=== PATIENT | male | born 1960 | race Caucasian/White ===

== ENCOUNTER 2016-12-23 17:44 | Emergency (ER) | payer SELFPAY ==
[~2016-12-23] VITALS: Ht 160 cm; Wt 72.0 kg
[2016-12-23 17:58] VITALS: Ht 160 cm; Wt 72.0 kg
[2016-12-23] MEDS ORDERED: MAGNESIUM SULFATE 2 GM, MULTIVITAMINS 10 ML, THIAMINE 100 MG, FOLIC ACID 1 MG in SOD CH... IV STA (18:00)
--- NOTE | 2016-12-23 19:02 | ERD ---
ER Documentation Chief Complaint Date/Time DATE: 12/23/16 TIME: 19:00 Chief Complaint shop lifting c/o hypergylcemia HPI This is a 56-year-old male with a history of diabetes that presents to the emergency department brought in by EMS after the patient was caught shoplifting a beer. The patient states he has been drinking alcohol throughout the day and has been noncompliant with his diabetic medication. The patient is reluctant to provide any further history but states he has no complaints at this time such as a headache chest pain palpitations nausea vomiting or abdominal pain. There is no signs of trauma or drug paraphernalia according to EMS ROS All systems reviewed and are negative except as per history of present illness. Medications Home Meds No Active Prescriptions or Reported Meds Allergies Allergies: Coded Allergies: No Known Allergy (Unverified , 12/23/16) Physical Exam Vitals Vital Signs Date Time Temp Pulse Resp B/P Pulse Ox O2 Delivery O2 Flow Rate FiO2 12/23/16 17:58 97.8 100 18 163/73 100 Physical Exam Constitutional:Well-developed. Well-nourished. HEENT:Normocephalic. Atraumatic.Pupils were equal round reactive to light. Moist mucous membranes.No tonsillar exudates. Neck: No nuchal rigidity. No lymphadenopathy. No posterior cervical spine tenderness or step-offs. Respiratory: Not using accessory muscles of respiration.Lungs were clear to auscultation bilaterally. No rhonchi. No rales. No wheezing. Cardiovascular: Regular rate regular rhythm.No murmurs. No rubs were appreciated.S1, S2 normal. Distal pulses are palpable 2+ bilaterally. GI: Abdomen was soft. Nontender. Non Distended. No pulsatile abdominal masses or bruits. No rebound. No guarding. Bowel sounds were present and normal. Muscle skeletal: Full range of motion of both the upper and lower extremities bilaterally.Normal muscle tone.No assymetrical calf tenderness or swelling. Skin: No petechia, no purpura. No lesions on the palms or the soles of the feet. No maculopapular rash. NEURO: Patient was alert, awake, orientated x3.No facial droop. Gait observed and normal with no ataxia.Speech was slurred. No focal neurological deficits. Patient smelled of alcohol. Results 24 hrs Current Medications Medications (Trade) Dose Ordered Sig/Naveen Route PRN Reason Start Time Stop Time Status Last Admin Dose Admin Magnesium Sulfate/ Multivitamins/ Thiamine HCl/ Folic Acid/Sodium Chloride (Magnesium Sulfate/Mvi Adult/ Vitamin B1/Folic Acid/NS) 1,015.2 ml @ 500 mls/ hr Q2H2M STAT IV 12/23/16 18:00 12/23/16 20:01 Procedures/MDM This patient presented to the emergency department with an Accu-Chek performed by EMS of 430. The patient appeared clinically intoxicated. After I evaluated the patient the nurse went into the room to administer IV fluids and place a peripheral IV however the patient had eloped without completion of treatment. 12 Lead EKG tracing ordered and reviewed by myself showed: Normal sinus rhythm of 97 bpm and no arrhythmia. DE interval normal. QRS duration normal. No ST segment elevation No ST segment depression. No changes consistent with acute ischemia. Departure Diagnosis: Primary Impression: Hyperglycemia Additional Impression: Alcohol intoxication Condition: Serious CORDELIA KAPLAN Dec 23, 2016 19:02
== END 2016-12-23 19:00 | disposition left against medical advice (07) ==
LOC: E/R 17:44
DX: E11.65 Type 2 diabetes mellitus with hyperglycemia (principal)
CPT/HCPCS: 93005; 99283; J3411; J3475; J7030